=== PATIENT | male | born 1955 | race Caucasian/White ===

== ENCOUNTER 2016-08-13 07:59 | Outpatient (CLI) | payer MEDICARE, MEDICAID | END 2016-08-13 08:00 | disposition home or self-care (01) | DX: I50.9 Heart failure, unspecified (principal); R53.83 Other fatigue; I25.10 Atherosclerotic heart disease of native coronary artery without angina pectoris; R73.9 Hyperglycemia, unspecified; J44.9 Chronic obstructive pulmonary disease, unspecified; R56.9 Unspecified convulsions; E03.9 Hypothyroidism, unspecified; E78.5 Hyperlipidemia, unspecified; I10 Essential (primary) hypertension ==

== ENCOUNTER 2016-12-10 10:35 | Outpatient (CLI) | payer MEDICARE, MEDICAID ==
[2016-12-10 19:52] LABS: ALBUMIN/GLOBULIN RATIO 1.2 (1.0-2.2); BILIRUBIN,TOTAL 0.7 mg/dL (0.2-1.0); CALCIUM 9.3 mg/dL (8.5-10.3); CREATININE 0.7 mg/dL (0.6-1.2); POTASSIUM 4.4 mmol/L (3.5-5.0); TOTAL PROTEIN 7.2 g/dL (6.7-8.2)
== END 2016-12-10 10:36 | disposition home or self-care (01) ==
LOC: LAB.F 10:35
PROVIDERS: ATTEND Internal Medicine
DX: I42.0 Dilated cardiomyopathy (principal); J44.9 Chronic obstructive pulmonary disease, unspecified
CPT/HCPCS: 36415; 80053

== ENCOUNTER 2017-01-10 09:41 | Outpatient (CLI) | payer MEDICARE, MEDICAID ==
[2017-01-10 18:44] LABS: ALBUMIN/GLOBULIN RATIO 1.3 (1.0-2.2); BILIRUBIN,TOTAL 0.4 mg/dL (0.2-1.0); CALCIUM 8.9 mg/dL (8.5-10.3); CREATININE 0.7 mg/dL (0.6-1.2)
== END 2017-01-10 09:42 | disposition home or self-care (01) ==
LOC: LAB.F 09:41
PROVIDERS: ATTEND Internal Medicine
DX: I42.0 Dilated cardiomyopathy (principal); J44.9 Chronic obstructive pulmonary disease, unspecified
CPT/HCPCS: 80053

== ENCOUNTER 2017-08-01 08:05 | Outpatient (CLI) | payer MEDICARE, MEDICAID ==
[2017-08-01 12:20] LABS: BUN - BLOOD UREA NITROGEN 20 mg/dL (6-20); CALCIUM 8.9 mg/dL (8.5-10.3); CARBON DIOXIDE - CO2 25 mmol/L (21-32); CHLORIDE 100 mmol/L (101-111); CHOL/HDL RATIO 3.8 (<5.0); CHOLESTEROL 130 mg/dL; CREATININE 0.7 mg/dL (0.6-1.2); GFR - MDRD 115 (>89); GLUCOSE 109 mg/dL (70-100); HDL CHOLESTEROL 34 mg/dL; LDL CHOLESTEROL,CALCULATED 78 mg/dL; LDL/HDL RATIO 2.3 (<3.6); SODIUM 134 mmol/L (135-145); VLDL CHOLESTEROL 18 mg/dL
== END 2017-08-01 08:06 | disposition home or self-care (01) ==
LOC: LAB.F 08:05
PROVIDERS: ATTEND Internal Medicine
DX: I10 Essential (primary) hypertension (principal); E78.5 Hyperlipidemia, unspecified; E03.9 Hypothyroidism, unspecified
CPT/HCPCS: 36415; 80048; 80061; 83721; 84443

== ENCOUNTER 2018-04-10 11:08 | Outpatient (CLI) | payer MEDICARE, MEDICAID ==
[2018-04-10 20:31] LABS: ALBUMIN 3.8 g/dL (3.2-5.5); ALBUMIN/GLOBULIN RATIO 1.3 (1.0-2.2); ALKALINE PHOSPHATASE 63 IU/L (42-121); ALT ALANINE AMINOTRANSFERASE 26 IU/L (10-60); AST ASPARTATE AMINOTRANSFERASE 19 IU/L (10-42); BILIRUBIN,TOTAL 0.4 mg/dL (0.2-1.0); BUN - BLOOD UREA NITROGEN 14 mg/dL (6-20); CARBON DIOXIDE - CO2 25 mmol/L (21-32); CHLORIDE 104 mmol/L (101-111); CHOL/HDL RATIO 4.6 (<5.0); CHOLESTEROL 161 mg/dL; CREATININE 0.4 mg/dL (0.6-1.2); GFR - MDRD 219 (>89); GLUCOSE 103 mg/dL (70-100); HDL CHOLESTEROL 35 mg/dL; LDL CHOLESTEROL,CALCULATED 113 mg/dL; LDL/HDL RATIO 3.2 (<3.6); SODIUM 140 mmol/L (135-145); TOTAL PROTEIN 6.7 g/dL (6.7-8.2); VALPROIC ACID (DEPAKOTE) 88.5 ug/mL; VLDL CHOLESTEROL 13 mg/dL
== END 2018-04-10 11:09 | disposition home or self-care (01) ==
LOC: LAB.F 11:08
PROVIDERS: ATTEND Internal Medicine
DX: E78.5 Hyperlipidemia, unspecified (principal); Z12.5 Encounter for screening for malignant neoplasm of prostate; G40.909 Epilepsy, unspecified, not intractable, without status epilepticus; E03.9 Hypothyroidism, unspecified
CPT/HCPCS: 36415; 80053; 80061; 80164; 80177; 84443; G0103; 83721; 84153